=== PATIENT | male | born 1955 | race Caucasian/White ===

== ENCOUNTER 2019-05-21 19:28 | Emergency (ER) | payer OTHER, MEDICAID ==
[~2019-05-21] VITALS: Ht 170.2 cm; Wt 65.8 kg
[2019-05-21 19:33] VITALS: BP_SYST 128
[2019-05-21] MEDS ORDERED: KETOROLAC TROMETHAMINE 60 MG/2 ML VIAL IM ONE (20:00)
[2019-05-21 21:15] VITALS: BP_SYST 126
== END 2019-05-21 21:15 | disposition home or self-care (01) ==
LOC: SED 19:28
DX: M16.11 Unilateral primary osteoarthritis, right hip (principal); R03.0 Elevated blood-pressure reading, without diagnosis of hypertension; F17.210 Nicotine dependence, cigarettes, uncomplicated; Z71.6 Tobacco abuse counseling; Z86.19 Personal history of other infectious and parasitic diseases
CPT/HCPCS: 73502; 96372; 99283; J1885